=== PATIENT | female | born 1955 | race Caucasian/White ===

== ENCOUNTER 2018-10-30 16:24 | Emergency (ER) | payer BC, OTHER ==
--- NOTE | 2018-10-30 16:34 | Emergency Department Record ---
History of Present Illness - General Chief Complaint: Laceration(s) Stated Complaint: LT RING FINGER LAC Time Seen by Provider: 10/30/18 16:28 Source: Patient, Family Mode of Arrival: Ambulatory Limitations: No limitations - History of Present Illness Initial Commments: 63 yo female presents after a laceration to the left ring finger. She reached into a cabinet and ran her hand against the blade of a brand new dog food shredder operator. No loss of ROM. No numbness or tingling. Last tetanus was in April. -: Minutes(s) Extremity Location: Left: Hand Place: Home Context: Accidental, Sharp object use Associated Symptoms: None Treatments Prior to Arrival: Bandage - Astrid Coma Scale Eye Response: (4) Open spontaneously Motor Response: (6) Obeys commands Verbal Response: (5) Oriented Astrid Total: 15 - Related Data Home Medications Medication Instructions Recorded Confirmed Last Taken Amitriptyline HCl 25 mg PO QHS 10/30/18 10/30/18 Unknown Cyclobenzaprine HCl 10 mg PO DAILY 10/30/18 10/30/18 Unknown Gabapentin [Neurontin] 800 mg PO TID 10/30/18 10/30/18 Unknown Trazodone HCl 50 mg PO QHS 10/30/18 10/30/18 Unknown Allergies Allergy/AdvReac Type Severity Reaction Status Date / Time fentanyl Allergy HIVES Verified 10/30/18 16:34 NSAIDS (Non-Steroidal Allergy ABDOMINAL Verified 10/30/18 16:34 Anti-Inflamma PAIN Review of Systems Constitutional: Denies: Chills, Fever, Malaise, Weakness, Weight change Eyes: Denies: Eye discharge, Eye pain, Photophobia ENT: Denies: Congestion, Throat pain Respiratory: Denies: Cough Cardiovascular: Denies: Chest pain Endocrine: Denies: Fatigue Gastrointestinal: Denies: Diarrhea, Nausea, Vomiting Musculoskeletal: Denies: Arthralgia, Joint swelling, Myalgia Skin: Reports: Other (laceration). Denies: Bruising, Change in color Neurological: Denies: Headache Psychiatric: Denies: Anxiety Hematological/Lymphatic: Denies: Blood Clots, Easy bleeding, Easy bruising, Swollen glands Physical Exam - General General Appearance: Alert, Oriented x3, Cooperative, No acute distress Limitations: No limitations - Head Head exam: Atraumatic, Normal inspection - Eye Eye exam: Normal appearance. negative: Conjunctival injection - ENT ENT exam: Normal exam Ear exam: Normal external inspection Nasal Exam: Normal inspection Mouth exam: Normal external inspection - Neck Neck exam: Normal inspection - Extremities Extremities exam: Normal capillary refill. negative: Normal inspection, Pedal edema, Tenderness Image of Hand: 1 - 2.5cm linear clean laceration. No visible injury to the extensor tendon. Full active and passive ROM without limitation or visible tendon injury. - Neurological Neurological exam: Alert, Oriented X3 - Psychiatric Psychiatric exam: Normal affect, Normal mood - Skin Skin exam: Dry, Normal color, Warm. negative: Intact Type of lesion: Laceration Course - Reevaluation(s) Reevaluation #1: Procedure Note 2.5 cm laceration of the finger Wound was cleaned and prepped in sterile fashion, no residual FB identified on examination. No visible tendon injury through a range of motion The wound was copiously irrigated with NS Wound was anesthetized with 4 mL of 1% Lidocaine plain The laceration was repaired with Ethilon 5-0 sutures in interrupted fashion. 7 sutures placed Patient tolerated the procedure well without complications. We discussed home care, reasons for immediate return if any concerns, and suture removal in 12 days 10/30/18 16:33 10/30/18 17:09 Disposition Disposition: Discharge Clinical Impression: Finger laceration Disposition: Home, Self-Care Condition: (1) Good Instructions: Laceration (ED) Additional Instructions: Use the splint until healed and rechecked in the ER Suture removal in 12 days Return if you have pain, redness, pus or signs of infection or any concerns Forms: Patient Portal Access Time of Disposition: 17:10 Quality - Quality Measures Quality Measures: N/A - Blood Pressure Screening Does Patient Have Any of the Following: No Blood Pressure Classification: Pre-Hypertensive BP Reading Systolic Measurement: 120 Diastolic Measurement: 74 Screening for High Blood Pressure: < Pre-Hypertensive BP, F/U Documented > [ G8950] Pre-Hypertensive Follow-up Interventions: Referral to alternative/primary care provider.
== END 2018-10-30 17:27 | disposition home or self-care (01) ==
LOC: ER 16:24
DX: S61.215A Laceration without foreign body of left ring finger without damage to nail, initial encounter (principal); W26.8XXA Contact with other sharp object(s), not elsewhere classified, initial encounter; Y92.000 Kitchen of unspecified non-institutional (private) residence as the place of occurrence of the external cause
CPT/HCPCS: 12041; 99283

== ENCOUNTER 2018-11-11 11:45 | Emergency (ER) | payer BC ==
--- NOTE | 2018-11-11 12:07 | Emergency Department Record ---
History of Present Illness - General Chief Complaint: Suture removal Stated Complaint: SUTURE REMOVAL Time Seen by Provider: 11/11/18 11:56 Source: Patient, Family Mode of arrival: Ambulatory Limitations: No limitations - History of Present Illness Initial Comments: 63 yo female presents for suture removal. She lacerated her finger 2 weeks ago. She has worn her finger splint. No complaints. No swelling or redness. MD Complaint: Suture/staple removal, Wound re-check -: Week(s) (2) Initial Visit For: Laceration Returns Today for: Staple/stitch removal, Wound recheck Symptoms Since Prior Visit: No new symptoms - Related Data Allergies Allergy/AdvReac Type Severity Reaction Status Date / Time fentanyl Allergy HIVES Verified 11/11/18 11:50 NSAIDS (Non-Steroidal Allergy ABDOMINAL Verified 11/11/18 11:50 Anti-Inflamma PAIN Review of Systems Constitutional: Denies: Fever Musculoskeletal: Denies: Arthralgia, Joint swelling, Myalgia Skin: Denies: Bruising, Change in color, Rash Neurological: Denies: Numbness, Tingling Hematological/Lymphatic: Denies: Easy bleeding, Easy bruising Past Medical History - SOCIAL HISTORY Smoking Status: Current every day smoker Drug Use: None - RESPIRATORY Hx Respiratory Disorders: No - CARDIOVASCULAR Hx Cardio Disorders: No - NEURO Hx Neuro Disorders: Yes Hx Headaches: Yes - GI Hx GI Disorders: No - Hx Genitourinary Disorders: No - ENDOCRINE Hx Endocrine Disorders: No - MUSCULOSKELETAL Hx Musculoskeletal Disorders: Yes Hx Arthritis: Yes Comment:: DDD - PSYCH Hx Psych Problems: No - HEMATOLOGY/ONCOLOGY Hx Hematology/Oncology Disorders: No Physical Exam - General General Appearance: Alert, Oriented x3, Cooperative, No acute distress - Head Head exam: Normal inspection - Eye Eye exam: Normal appearance - ENT ENT exam: Normal exam Ear exam: Normal external inspection Nasal Exam: Normal inspection - Neck Neck exam: Normal inspection - Extremities Extremities exam: Normal inspection, Other (Healing laceration, no swelling, warmth. Wound margin intact) - Neurological Neurological exam: Alert, Oriented X3. negative: Motor sensory deficit - Psychiatric Psychiatric exam: Normal affect, Normal mood - Skin Skin exam: Dry, Intact, Normal color, Warm Course - Reevaluation(s) Reevaluation #1: Healing laceration Sutures removed and steristrips placed We discussed continue minimal flexion due to location Use splint with activity 1-2 more weeks 11/11/18 12:10 Disposition Disposition: Discharge Clinical Impression: Visit for suture removal Disposition: Home, Self-Care Condition: (1) Good Instructions: Stitches Removal (ED) Additional Instructions: Return if any concerns with the healing of the finger Forms: Patient Portal Access Time of Disposition: 12:12 Quality - Quality Measures Quality Measures: N/A - Blood Pressure Screening Does Patient Have Any of the Following: No Blood Pressure Classification: Normal BP Reading Systolic Measurement: 110 Diastolic Measurement: 70 Screening for High Blood Pressure: < Normal BP, F/U Not Required > [G8783]
== END 2018-11-11 12:17 | disposition home or self-care (01) ==
LOC: ER 11:45
DX: Z48.02 Encounter for removal of sutures (principal)